=== PATIENT | female | born 1980 | race Caucasian/White ===

== ENCOUNTER 2017-04-26 13:10 | Emergency (ER) | payer OTHER, MEDICAID ==
[~2017-04-26] VITALS: Ht 182.9 cm; Wt 79.4 kg
--- NOTE | 2017-04-26 13:15 | ER Report ---
History and Physical Time Seen By MD: 13:12 HPI/ROS CHIEF COMPLAINT: Right upper extremity pain status post fall. HISTORY OF PRESENT ILLNESS: Patient is a 36-year-old female who fell onto her outstretched right hand after suspect on some ice around [place]. She self medicated with Tylenol approximate one hour later symptoms are progressing she is feeling pain from of the wrist all the way up the forearm to the elbow or shoulder and clavicle area. Allergies: Coded Allergies: No Known Drug Allergies (Unverified , 04/26/17) Home Meds Active Scripts Naproxen (NAPROXEN) 375 Mg Tablet., 375 MG PO TID for PAIN, #15 TAB 0 Refills Prov:JOSÉ MIGUEL JACOBS MD 04/26/17 Past Medical/Surgical History Noncontributory Constitutional Vital Sign - Last 24 Hours 04/26/17 13:20 Temp 97.1 Pulse 72 Resp 18 B/P (MAP) 129/93 Pulse Ox 94 O2 Delivery Room Air Physical Exam General Appearance: Awake and alert Respiratory: Chest is non tender, lungs are clear to auscultation. Cardiac: regular rate and rhythm Gastrointestinal: Abdomen is soft and non tender, no masses, bowel sounds normal. Musculoskeletal: Neck: Neck is supple and non tender. Extremities patient reports subjective pain from the wrist including the snuffbox up the forearm elbow to the shoulder and clavicle area. No obvious deformity is noted. Patient is able to give the thumbs up sign, abduct and adduct all the digits and is able to make an okay sign. Sensation is intact to the median radial and ulnar nerves as well. Skin: No rashes or lesions. Medical Decision Making EKG/Imaging Imaging right clavicle -neg Right shoulder-neg right elbow- neg right forearm-neg right wrist-possible lucency thru scaphoid ED Course/Re-evaluation ED Course Patient does have snuffbox tenderness to the right wrist. Plan will be immobilization in a thumb spica splint with reevaluation in one to 2 weeks with her primary care provider. Re-evaluation 04/26/2017 2:31:13 pm initial interpretation of wrist was negative. Patient was discharged n a thumb spica splint. After her discharge, Radiology review shows possible low lucency of midway through the scaphoid that is nondisplaced. They recommend either further additional views and/or follow-up with orthopedics. Attempted to contact patient by number listed was unable to reach patient. We will attempt again at a later time. Patient is splinted with a thumb spica splint so we will encourage her to continue to wear that splint and obtain orthopedic follow-up. Decision to Disposition Date: Apr 26, 2017 Decision to Disposition Time: 14:03 Depart Departure Latest Vital Signs Vital Signs Date Time Temp Pulse Resp B/P (MAP) Pulse Ox O2 Delivery O2 Flow Rate FiO2 04/26/17 13:20 97.1 72 18 129/93 94 Room Air Impression: Primary Impression: Injury, other and unspecified, elbow, forearm, and wrist Condition: Improved Disposition: HOME OR SELF-CARE Referrals: [facility] 2 Weeks If wrist pain still persists New Scripts Naproxen (NAPROXEN) 375 Mg Tablet. 375 MG PO TID for PAIN, #15 TAB 0 Refills Prov: JOSÉ MIGUEL JACOBS MD 04/26/17 Patient Instructions: Splint Care (DC) Additional Instructions: If you still has pain to the right wrist area you should be followed up by your primary care provider or schedule a follow-up appointment with orthopedics for reevaluation and further imaging studies. JOSÉ MIGUEL JACOBS MD Apr 26, 2017 13:15
[2017-04-26 13:20] VITALS: BP 129/93
[2017-04-26] MEDS ORDERED: IBUPROFEN 800 MG TAB PO ONE ×2 (13:20→13:33)
[2017-04-26] MEDS ORDERED: NAPR-731 PO (14:06)
--- NOTE | 2017-04-29 09:48 | RADIOLOGY IMAGING REPORT ---
FACILITY: [facility] PATIENT NAME: Nicolle Kay : 1980 MR: [id number] V: [id number] EXAM DATE: ORDERING PHYSICIAN: JOSÉ MIGUEL JACOBS TECHNOLOGIST: Location: [facility] - [place] Patient: Nicolle Kay : 1980 Visit/Account:[id number] Date of Sevice: 04/26/2017 Exam type: ELBOW 3 VIEWS RIGHT History: trauma Comparison: None. Findings: There is no evidence of acute fracture or dislocation involving the right elbow. No radiopaque soft tissue foreign bodies are seen. IMPRESSION: 1. No acute osteoarticular abnormality of the right elbow seen Report Dictated By: Rayna Enamorado MD at 04/26/2017 2:25 PM Report E-Signed By: Rayna Enamorado MD at 04/26/2017 2:25 PM WSN:[email or web address]
--- NOTE | 2017-04-29 09:48 | RADIOLOGY IMAGING REPORT ---
FACILITY: [facility] - [place] PATIENT NAME: Nicolle Kay : 1980 MR: [id number] V: [id number] EXAM DATE: ORDERING PHYSICIAN: JOSÉ MIGUEL JACOBS TECHNOLOGIST: [place] [facility] [place]le [place] : 1980 Visit/Account:[id number] Date of Sevice: 04/26/2017 Exam type: FOREARM RIGHT History: trauma Comparison: None. Findings: Two views of the right forearm reveal no evidence of acute fracture or dislocation. No radial opaque soft tissue foreign body seen. IMPRESSION: 1. No acute osteoarticular abnormality of the right forearm is seen Report Dictated By: Rayna Enamorado MD at 04/26/2017 2:19 PM Report E-Signed By: Rayna Enamorado MD at 04/26/2017 2:19 PM WSN:[email or web address]
--- NOTE | 2017-04-29 09:49 | RADIOLOGY IMAGING REPORT ---
FACILITY: [facility] - [place] PATIENT NAME: Nicolle Kay : 1980 MR: [id number] V: [id number] EXAM DATE: ORDERING PHYSICIAN: JOSÉ MIGUEL JACOBS TECHNOLOGIST: Location: [facility] - [place] Patient: Nicolle Kay : 1980 Visit/Account:[id number] Date of Sevice: 04/26/2017 Exam type: CLAVICLE RIGHT History: trauma Comparison: None. Findings: Two views of the right clavicle reveal no evidence of acute fracture or dislocation. IMPRESSION: 1. No acute osteoarticular abnormality of the right clavicle seen Report Dictated By: Rayna Enamorado MD at 04/26/2017 2:25 PM Report E-Signed By: Rayna Enamorado MD at 04/26/2017 2:26 PM WSN:[email or web address]
--- NOTE | 2017-04-29 09:49 | RADIOLOGY IMAGING REPORT ---
FACILITY: [facility] - [place] PATIENT NAME: Nicolle Kay : 1980 MR: [id number] V: [id number] EXAM DATE: ORDERING PHYSICIAN: JOSÉ MIGUEL JACOBS TECHNOLOGIST: Location: [facility] - [place] Patient: Nicolle Kay : 1980 Visit/Account:[id number] Date of Sevice: 04/26/2017 Exam type: SHOULDER MIN 2 VIEWS RIGHT History: trauma Comparison: None. Findings: Two views of the right shoulder reveal no evidence of acute fracture or dislocation. No significant arthritic change seen. No radio opaque soft tissue foreign bodies identified IMPRESSION: 1. No acute osteoarticular abnormality the right shoulder seen Report Dictated By: Rayna Enamorado MD at 04/26/2017 2:24 PM Report E-Signed By: Rayna Enamorado MD at 04/26/2017 2:24 PM WSN:[email or web address]
--- NOTE | 2017-04-29 09:50 | RADIOLOGY IMAGING REPORT ---
FACILITY: [facility] - [place] PATIENT NAME: Nicolle Kay : 1980 MR: [id number] V: [id number] EXAM DATE: ORDERING PHYSICIAN: JOSÉ MIGUEL JACOBS TECHNOLOGIST: Location: [facility] Patient: Nicolle Kay : 1980 Visit/Account:[id number] Date of Sevice: 04/26/2017 Exam type: WRIST RIGHT MIN 3 VIEW History: trauma Comparison: None. Findings: There suggestion of a lucency traversing the right navicular bone. This could represent a nondisplac ed right navicular fracture. A navicular view is recommended for further evaluation IMPRESSION: 1. There is a lucency traversing the waist of the right navicular bone. A right navicular fractures not excluded and a navicular view is recommended for further evaluation Report Dictated By: Rayna Enamorado MD at 04/26/2017 2:17 PM Report E-Signed By: Rayna Enamorado MD at 04/26/2017 2:19 PM WSN:[email or web address]
== END 2017-04-26 14:10 | disposition home or self-care (01) ==
LOC: ER 13:12
DX: S49.91XA Unspecified injury of right shoulder and upper arm, initial encounter (principal); W00.0XXA Fall on same level due to ice and snow, initial encounter
CPT/HCPCS: 99283

== ENCOUNTER 2017-07-24 14:17 | Emergency (ER) | payer MEDICAID, OTHER ==
[~2017-07-24 14:17] MED LIST: NAPR-731 PO
--- NOTE | 2017-07-24 14:35 | ER Report ---
History and Physical Time Seen By MD: 14:30 Hx. of Stated Complaint: sob since saturday. was doing a workout on a ball. the ball popped, her butt hit the floor. has been sob and in pain since the incident HPI/ROS CHIEF COMPLAINT: Shortness of breath HISTORY OF PRESENT ILLNESS: 37 uvula comes emergency Department today with complaints of shortness of breath patient states she was sitting and exercise ball 5 days prior to presentation a ball popped she bounced on the ground on her backside and subsequently since that she could have a shortness of breath and pain in her abdomen every time he takes a deep breath no chest pain otherwise except again under her breast line no abdominal pain otherwise no cough fever chills no nausea vomiting or diarrhea no additional complaints noted REVIEW OF SYSTEMS: Respiratory: No cough shortness of breath Cardiovascular: No chest pain, no palpitations. Gastrointestinal: No vomiting, no abdominal pain. Musculoskeletal: No back pain. Remainder of the 14 system rev: Yes Allergies: Coded Allergies: No Known Drug Allergies (Unverified , 07/24/17) Home Meds Active Scripts Naproxen (NAPROXEN) 375 Mg Tablet., 375 MG PO TID for PAIN, #15 TAB 0 Refills Prov:JOSÉ MIGUEL JACOBS MD 04/26/17 Reviewed Nurses Notes: Yes Old Medical Records Reviewed: Yes Hx Substance Use Disorder: No Hx Alcohol Use: No Constitutional Vital Sign - Last 24 Hours 07/24/17 07/24/17 07/24/17 07/24/17 14:17 14:20 14:24 14:30 Temp 98.0 Pulse ??? 72 Resp 12 B/P (MAP) 127/88 127/88 (101) 133/85 (101) Pulse Ox 97 O2 Delivery Room Air 07/24/17 07/24/17 07/24/17 07/24/17 14:32 14:47 15:00 15:02 Pulse 68 ??? 59 Resp 23 B/P (MAP) 100/83 (89) Pulse Ox 92 94 07/24/17 07/24/17 07/24/17 07/24/17 15:17 15:30 15:32 15:37 Pulse 62 61 61 Resp 9 10 19 B/P (MAP) 105/83 (90) Pulse Ox 95 96 96 07/24/17 07/24/17 07/24/17 07/24/17 15:52 16:00 16:07 16:22 Pulse 56 54 62 Resp 12 8 11 B/P (MAP) 109/74 (86) Pulse Ox 96 96 93 07/24/17 07/24/17 07/24/17 16:30 16:37 16:52 Pulse 66 ??? Resp 12 B/P (MAP) 106/82 (90) Pulse Ox 97 Physical Exam General Appearance: [The patient is alert, has no immediate need for airway protection and no current signs of toxicity.] [ ] Eyes: Pupils equal and round no injection. Respiratory: Chest is non tender, lungs are clear to auscultation. Cardiac: regular rate and rhythm [ ] Gastrointestinal: Abdomen is soft and non tender, no masses, bowel sounds normal. Musculoskeletal: Neck: Neck is supple and non tender. Extremities have full range of motion and are non tender. Skin: No rashes or lesions. [ ] DIFFERENTIAL DIAGNOSIS: After history and physical exam differential diagnosis was considered for muscle strain pulmonary emboli cardiac abnormality pneumothorax rib fracture Medical Decision Making Data Points Result Diagram: 07/24/17 1428 07/24/17 1428 Laboratory Hematology Test 07/24/17 14:20 07/24/17 14:28 Red Blood Count 5.23 M/uL (4.17-5.56) Mean Corpuscular Volume 89.1 fL (80.0-96.0) Mean Corpuscular Hemoglobin 30.8 pg (26.0-33.0) Mean Corpuscular Hemoglobin Concent 34.6 g/dL (32.0-36.0) Red Cell Distribution Width 13.4 % (11.5-14.5) Mean Platelet Volume 9.9 fL (7.2-11.1) Neutrophils (%) (Auto) 73.9 % (39.4-72.5) Lymphocytes (%) (Auto) 18.9 % (17.6-49.6) Monocytes (%) (Auto) 5.8 % (4.1-12.4) Eosinophils (%) (Auto) 0.8 % (0.4-6.7) Basophils (%) (Auto) 0.6 % (0.3-1.4) Nucleated RBC Relative Count (auto) 0.0 /100WBC Neutrophils # (Auto) 11.2 K/uL (2.0-7.4) Lymphocytes # (Auto) 2.9 K/uL (1.3-3.6) Monocytes # (Auto) 0.9 K/uL (0.3-1.0) Eosinophils # (Auto) 0.1 K/uL (0.0-0.5) Basophils # (Auto) 0.1 K/uL (0.0-0.1) Nucleated RBC Absolute Count (auto) 0.01 K/uL Peripheral Blood Smear Yes Y/N D-Dimer Quantitative (PE/DVT) < 0.27 ug/ml (0-0.50) Sodium Level 141 mmol/L (137-145) Potassium Level 3.6 mmol/L (3.5-5.0) Chloride Level 99 mmol/L (98-107) Carbon Dioxide Level 25 mmol/L (22-31) Blood Urea Nitrogen 16 mg/dl (7-18) Creatinine 0.90 mg/dl (0.52-1.04) Glomerular Filtration Rate Calc > 60.0 Random Glucose 94 mg/dl (75-110) Calcium Level 9.7 mg/dl (8.4-10.2) Total Bilirubin 0.5 mg/dl (0.2-1.3) Aspartate Amino Transf (AST/SGOT) 28 U/L (0-35) Alanine Aminotransferase (ALT/SGPT) 25 U/L (0-56) Alkaline Phosphatase 56 U/L (0-126) Troponin I < 0.012 ng/ml B-Type Natriuretic Peptide 26 pg/ml (0-100) Total Protein 8.5 gm/dl (6.3-8.2) Albumin 4.8 g/dl (3.5-5.0) Lipase 121 U/L (23-300) Chemistry Test 07/24/17 14:20 07/24/17 14:28 White Blood Count 15.1 k/uL (4.5-11.0) Red Blood Count 5.23 M/uL (4.17-5.56) Hemoglobin 16.1 g/dL (12.0-16.0) Hematocrit 46.6 % (34.0-47.0) Mean Corpuscular Volume 89.1 fL (80.0-96.0) Mean Corpuscular Hemoglobin 30.8 pg (26.0-33.0) Mean Corpuscular Hemoglobin Concent 34.6 g/dL (32.0-36.0) Red Cell Distribution Width 13.4 % (11.5-14.5) Platelet Count 96 K/uL (150-450) Mean Platelet Volume 9.9 fL (7.2-11.1) Neutrophils (%) (Auto) 73.9 % (39.4-72.5) Lymphocytes (%) (Auto) 18.9 % (17.6-49.6) Monocytes (%) (Auto) 5.8 % (4.1-12.4) Eosinophils (%) (Auto) 0.8 % (0.4-6.7) Basophils (%) (Auto) 0.6 % (0.3-1.4) Nucleated RBC Relative Count (auto) 0.0 /100WBC Neutrophils # (Auto) 11.2 K/uL (2.0-7.4) Lymphocytes # (Auto) 2.9 K/uL (1.3-3.6) Monocytes # (Auto) 0.9 K/uL (0.3-1.0) Eosinophils # (Auto) 0.1 K/uL (0.0-0.5) Basophils # (Auto) 0.1 K/uL (0.0-0.1) Nucleated RBC Absolute Count (auto) 0.01 K/uL Peripheral Blood Smear Yes Y/N D-Dimer Quantitative (PE/DVT) < 0.27 ug/ml (0-0.50) Glomerular Filtration Rate Calc > 60.0 Calcium Level 9.7 mg/dl (8.4-10.2) Total Bilirubin 0.5 mg/dl (0.2-1.3) Aspartate Amino Transf (AST/SGOT) 28 U/L (0-35) Alanine Aminotransferase (ALT/SGPT) 25 U/L (0-56) Alkaline Phosphatase 56 U/L (0-126) Troponin I < 0.012 ng/ml B-Type Natriuretic Peptide 26 pg/ml (0-100) Total Protein 8.5 gm/dl (6.3-8.2) Albumin 4.8 g/dl (3.5-5.0) Lipase 121 U/L (23-300) Coagulation Test 07/24/17 14:28 D-Dimer Quantitative (PE/DVT) < 0.27 ug/ml Urinalysis Test 07/24/17 14:20 ED Course/Re-evaluation ED Course 37-year-old female comes in with vague nonspecific lower chest and upper abdominal discomfort Baseline labs cardiac markers EKG x-ray and ultrasound were all negative this is most likely gastritis would advise a dietary restrictions and follow up with primary care Decision to Disposition Date: Jul 24, 2017 Decision to Disposition Time: 17:03 Depart Departure Latest Vital Signs Vital Signs Date Time Temp Pulse Resp B/P (MAP) Pulse Ox O2 Delivery O2 Flow Rate FiO2 07/24/17 16:52 ??? 07/24/17 16:37 12 97 07/24/17 16:30 106/82 (90) 07/24/17 14:20 98.0 Room Air Impression: Primary Impression: Abdominal pain Condition: Improved Disposition: HOME OR SELF-CARE Referrals: PRAMOD ANN MD 5 Days Patient Instructions: Abdominal Pain (ED) GIOVANNY FAGAN MD Jul 24, 2017 14:35
--- NOTE | 2017-07-24 14:45 | EKG ---
FACILITY: [facility] PATIENT NAME: PAGE PEREZ : [id number] MR: [id number] V: [id number] EXAM DATE: ORDERING PHYSICIAN: GIOVANNY FAGAN TECHNOLOGIST: GEOFFREY Rogers Reason : CP Blood Pressure : / mmHG Vent. Rate : 060 BPM Atrial Rate : 060 BPM P-R Int : 132 ms QRS Dur : 080 ms QT Int : 438 ms P-R-T Axes : 058 091 078 degrees QTc Int : 438 ms Normal sinus rhythm Rightward axis Borderline ECG No previous ECGs available Confirmed by ROSALBA SPENCE ([id number]) on 07/25/2017 12:30:11 PM Referred By: MARISSA Confirmed By:ROSALBA SPENCE
[2017-07-24 14:53] LABS: PLATELET COUNT, AUTOMATED 96 K/uL (150-450)
--- NOTE | 2017-07-24 15:21 | RADIOLOGY IMAGING REPORT ---
FACILITY: [facility] - [place] PATIENT NAME: Nicolle Kay : 1980 MR: [id number] V: [id number] EXAM DATE: ORDERING PHYSICIAN: GIOVANNY FAGAN TECHNOLOGIST: Location: [facility] [place] Patient: Nicolle Kay : 1980 Visit/Account:[id number] Date of Sevice: 07/24/2017 Exam type: CHEST PA AND LAT History: sob Comparison: None. Findings: The lungs are free of acute effusions, infiltrates or edema. There is no evidence of pneumothorax or pneumomediastinum. There is a small ovoid nodular density projecting over the right midlung field. This overlaps the posterior aspect the right seventh rib. This could represent a superimposed shado w versus true pulmonary nodule. The cardiac silhouette is normal in size. The trachea is in midline IMPRESSION: 1. No acute cardiac pulmonary process is seen. There is a small nodular area projecting over the right midlung field. This overlaps the posterior a spect of the right seventh rib. This could represent superimposed shadow versus true pulmonary nodul e. Short-term interval follow-up chest may be helpful Report Dictated By: Rayna Enamorado MD at 07/24/2017 3:15 PM Report E-Signed By: Rayna Enamorado MD at 07/24/2017 3:17 PM WSN:[email or web address]
[2017-07-24 16:30] VITALS: BP 106/82
--- NOTE | 2017-07-24 17:00 | RADIOLOGY IMAGING REPORT ---
FACILITY: [facility] PATIENT NAME: Nicolle Kay : 1980 MR: [id number] V: [id number] EXAM DATE: ORDERING PHYSICIAN: GIOVANNY FAGAN TECHNOLOGIST: Location: [facility] Patient: Nicolle Kay : 1980 Visit/Account:[id number] Date of Sevice: 07/24/2017 EXAMINATION: Limited right upper quadrant ultrasound Additional Pertinent history: Upper abdominal pain. Fall with back pain. COMPARISON STUDIES: None. FINDINGS: Gallbladder: no stones or sludge, wall thickening or pericholecystic fluid. Negative ultrasound Lindsay y sign. Liver: Normal. Common duct: normal 2.0 mm. Pancreas: Visualized pancreas is within normal limits. The tail is obscured by bowel gas. Right kidney: No stones or hydronephrosis. There does appear to be a parenchymal calcification measur ing 4 mm. No discrete lesions. Proximal IVC/Aorta: negative IMPRESSION: No acute abnormality. Report Dictated By: Bernabe Sanches at 07/24/2017 4:53 PM Report E-Signed By: Bernabe Sanches at 07/24/2017 4:56 PM WSN:[id number]
== END 2017-07-24 17:10 | disposition home or self-care (01) ==
LOC: ER 14:55
DX: R10.9 Unspecified abdominal pain (principal)
CPT/HCPCS: 36415; 71046; 76705; 81001; 82040; 82247; 82310; 82374; 82435; 82565; 82947; 83690; 83880; 84075; 84132; 84155; 84295; 84450; 84460; 84484; 84520; 85025; 85379; 93005; 99284

== ENCOUNTER 2018-08-17 11:24 | Emergency (ER) | payer SELFPAY ==
[2018-08-17] MEDS ORDERED: oxyCODON/ACET (*)5/325MG (CII) 1 TAB TAB PO ONE (12:00)
[2018-08-17] MEDS ORDERED: METHOCARBAMOL 500 MG TAB PO ONE (12:00)
--- NOTE | 2018-08-17 12:07 | ER Report ---
History and Physical Time Seen By MD: 12:05 Hx. of Stated Complaint: patient reports back pain since 08/10. Has been seen in another ER and was told it was a kidney stone. Has numbness to the left leg, and back pain that is on the right side HPI/ROS CHIEF COMPLAINT: Right-sided back and flank pain. HISTORY OF PRESENT ILLNESS: Patient is a 38-year-old female who is traveling through [place] who is complaining of approximately one week of right-sided back pain also having some numbness down her left leg. She denies any dysuria or burning with urination she denies any incontinence or retention of urine or stool. She denies saddle anesthesia. He states that the symptoms have been imp roving somewhat over the past few days. She states that she was given tramadol at her prior hospital visit and was told that if her symptoms persisted it could be a kidney stone so she should follow-up for reevaluation if symptoms persisted. She denies any nausea or vomiting she denies fevers or chills. The pain is mostly located in the right paraspinal muscle group without significant radiation. Change in position seems to make symptoms worse. Sitting for prolonged periods at times makes symptoms worse. REVIEW OF SYSTEMS: Respiratory: No cough, no dyspnea. Cardiovascular: No chest pain, no palpitations. Gastrointestinal: No vomiting, no abdominal pain. Musculoskeletal: Right-sided back pain Allergies: Coded Allergies: No Known Drug Allergies (Unverified , 07/24/17) Home Meds Active Scripts Naproxen (NAPROXEN) 375 Mg Tablet.dr, 375 MG PO TID for PAIN, #15 TAB 0 Refills Prov:JOSÉ MIGUEL JACOBS MD 04/26/17 Past Medical/Surgical History Noncontributory Hx Substance Use Disorder: No Hx Alcohol Use: No Constitutional Vital Sign - Last 24 Hours 08/17/18 11:37 Temp 98.8 B/P (MAP) 136/82 Physical Exam General appearance: alert no distress. Back: Thoracic spine has no spinal or paraspinal tenderness to palpation. Lumbar spine has no spinal tenderness moderateparaspinal tenderness Gastroinal: Abdomen is soft, non tender, no masses.. Skin: No lesions and no rashes. Vascular: Normal capillary refill and pulses to feet. Neurological: Motor function: leg strength normal and symmetric for both legs Sensory function: normal for all leg dermatomes. Straight leg raise negative to 70 degrees. Reflexes normal bilaterally on legs. [ ] DIFFERENTIAL DIAGNOSIS: After history and physical exam differential diagnosis was considered for back pain including muscular strain, herniated disc, intra- abdominal and renal causes. Medical Decision Making Data Points Laboratory Hematology Test 08/17/18 11:47 Urine Color Yellow Urine Clarity Slightly-cloudy Urine pH 5.0 pH (4.8-9.5) Urine Specific Manning 1.008 Urine Protein Negative mg/dL (NEGATIVE) Urine Glucose (UA) Negative mg/dL (NEGATIVE) Urine Ketones Negative mg/dL (NEGATIVE) Urine Blood Small (NEGATIVE) Urine Nitrite Negative (NEGATIVE) Urine Bilirubin Negative (NEGATIVE) Urine Urobilinogen Negative mg/dL (0.2-1.9) Urine Leukocyte Esterase Small (NEGATIVE) Urine RBC 1 /HPF (0-2/HPF) Urine WBC 3 /HPF (0-5/HPF) Urine Squamous Epithelial Cells Many /LPF (</=FEW) Urine Bacteria Few /HPF (NONE-FEW) Urine Mucus Few /HPF (NONE-FEW) Urine HCG, Qualitative Negative (NEGATIVE) Chemistry Test 08/17/18 11:47 Urine Color Yellow Urine Clarity Slightly-cloudy Urine pH 5.0 pH (4.8-9.5) Urine Specific Manning 1.008 Urine Protein Negative mg/dL (NEGATIVE) Urine Glucose (UA) Negative mg/dL (NEGATIVE) Urine Ketones Negative mg/dL (NEGATIVE) Urine Blood Small (NEGATIVE) Urine Nitrite Negative (NEGATIVE) Urine Bilirubin Negative (NEGATIVE) Urine Urobilinogen Negative mg/dL (0.2-1.9) Urine Leukocyte Esterase Small (NEGATIVE) Urine RBC 1 /HPF (0-2/HPF) Urine WBC 3 /HPF (0-5/HPF) Urine Squamous Epithelial Cells Many /LPF (</=FEW) Urine Bacteria Few /HPF (NONE-FEW) Urine Mucus Few /HPF (NONE-FEW) Urine HCG, Qualitative Negative (NEGATIVE) Urinalysis Test 08/17/18 11:47 Urine Color Yellow Urine Clarity Slightly-cloudy Urine pH 5.0 pH (4.8-9.5) Urine Specific Manning 1.008 Urine Protein Negative mg/dL (NEGATIVE) Urine Glucose (UA) Negative mg/dL (NEGATIVE) Urine Ketones Negative mg/dL (NEGATIVE) Urine Blood Small (NEGATIVE) Urine Nitrite Negative (NEGATIVE) Urine Bilirubin Negative (NEGATIVE) Urine Urobilinogen Negative mg/dL (0.2-1.9) Urine Leukocyte Esterase Small (NEGATIVE) Urine RBC 1 /HPF (0-2/HPF) Urine WBC 3 /HPF (0-5/HPF) Urine Squamous Epithelial Cells Many /LPF (</=FEW) Urine Bacteria Few /HPF (NONE-FEW) Urine Mucus Few /HPF (NONE-FEW) Urine HCG, Qualitative Negative (NEGATIVE) EKG/Imaging Imaging FACILITY: [facility] PATIENT NAME: Nicolle Kay : 1980 MR: [id number] V: [id number] EXAM DATE: ORDERING PHYSICIAN: JOSÉ MIGUEL JACOBS TECHNOLOGIST: Location: [facility] Patient: Nicolle Kay : 1980 Visit/Account:[id number] Date of Sevice: 08/17/2018 Lumbar spine, 2 views. HISTORY: Back pain. COMPARISON: None. Small endplate osteophytes and moderate loss of disc height are present at L3-4 and L4-5. Moderate to severe loss of disc height and vacuum phenomenon are present at L5-S1. Minimal chronic appearing wedging is present in the T12, L1, and L2 vertebral bodies. The bony spinal canal diameter is lower limits of normal. No acute fractures. Minimal sclerosis is present along the iliac sides of the sacroiliac joints. A few vascular calcifications may be present in the posterior abdomen. IMPRESSION: Moderate to severe multilevel degenerative disc disease. Report Dictated By: Benjamin Carmichael MD at 08/17/2018 12:50 PM Report E-Signed By: Benjamin Carmichael MD at 08/17/2018 12:52 PM WSN:[id number] [email or web address] Course/Re-evaluation ED Course Bedside ultrasound was negative for hydronephrosis. Urinalysis also negative. Plan at this time will be to perform a lumbar x-ray series. Will give oral pain medicine and muscle relaxant. Decision to Disposition Date: August 17, 2018 Decision to Disposition Time: 13:02 Depart Departure Latest Vital Signs Vital Signs Date Time Temp Pulse Resp B/P (MAP) Pulse Ox O2 Delivery O2 Flow Rate FiO2 08/17/18 11:37 98.8 136/82 Impression: Primary Impression: Back pain Condition: Improved Disposition: HOME OR SELF-CARE New Scripts Methocarbamol (ROBAXIN-750) 750 Mg Tablet 1500 MG PO QID for Muscle Relaxant, #30 TAB 0 Refills Prov: JOSÉ MIGUEL JACOBS MD 08/17/18 Patient Instructions: Acute Low Back Pain (ED), Arthritis (ED), Sciatica (DC) Problem Qualifiers Primary Impression: Back pain Back pain location: low back pain Chronicity: acute Back pain laterality: right Sciatica presence: with sciatica Sciatica laterality: sciatica of left side Qualified Codes: M54.42 - Lumbago with sciatica, left side JOSÉ MIGUEL JACOBS MD August 17, 2018 12:07
--- NOTE | 2018-08-17 12:57 | RADIOLOGY IMAGING REPORT ---
[place] [facility] [place] NAME: Nicolle Kay : 1980 MR: [id number] V: [id number] EXAM DATE: ORDERING PHYSICIAN: JOSÉ MIGUEL JACOBS TECHNOLOGIST: Location: [facility] Patient: Nicolle Kay : 1980 Visit/Account:[id number] Date of Sevice: 08/17/2018 Lumbar spine, 2 views. HISTORY: Back pain. COMPARISON: None. Small endplate osteophytes and moderate loss of disc height are present at L3-4 and L4-5. Moderate to severe loss of disc height and vacuum phenomenon are present at L5-S1. Minimal chronic appearing wed ging is present in the T12, L1, and L2 vertebral bodies. The bony spinal canal diameter is lower limi ts of normal. No acute fractures. Minimal sclerosis is present along the iliac sides of the sacroilia c joints. A few vascular calcifications may be present in the posterior abdomen. IMPRESSION: Moderate to severe multilevel degenerative disc disease. Report Dictated By: Benjamin Carmichael MD at 08/17/2018 12:50 PM Report E-Signed By: Benjamin Carmichael MD at 08/17/2018 12:52 PM WSN:[id number]
[2018-08-17] MEDS ORDERED: METH-543 PO (13:03)
[2018-08-17] MEDS ORDERED: OXYC-865 PO (13:03)
[2018-08-17 13:15] VITALS: BP 132/85
== END 2018-08-17 13:15 | disposition home or self-care (01) ==
LOC: ER 11:48
DX: M54.42 Lumbago with sciatica, left side (principal)
CPT/HCPCS: 72100; 81001; 81025; 87088; 99283